=== PATIENT | female | born 1980 ===

== ENCOUNTER 2017-11-26 10:51 | Emergency (ER) | payer SELFPAY ==
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
[2017-11-26] MEDS ORDERED: Ketorolac INJ* 60 MG/2 ML VIAL IM ONE (13:22)
[2017-11-26] MEDS ORDERED: Methocarbamol TAB* 500 MG PO ONE (13:22)
--- NOTE | 2017-11-26 13:41 | RAD ---
INDICATION: Chest pain COMPARISON: None TECHNIQUE: PA and lateral dual-energy views were obtained. FINDINGS: Bones/Soft Tissues: There are no acute bony findings. Cardiomediastinal: The cardiomediastinal silhouette is normal. Lungs: There are no infiltrates. Pleura: There are no pleural effusions. Other: None IMPRESSION: NO ACTIVE DISEASE.
--- NOTE | 2017-11-26 13:42 | RAD ---
INDICATION: Thoracic pain. Injury. COMPARISON: None TECHNIQUE: Routine 2 view imaging was performed FINDINGS: Bones: There are no acute bony findings. There are minor arthritic changes consisting of endplate sclerosis and marginal osteophyte reformation of the upper thoracic spine. Alignment: There is minor upper thoracic spine kyphosis Disc spaces: The disc spaces are well-maintained Soft tissues: There are no soft tissue abnormalities. IMPRESSION: MINOR OSTEOARTHRITIS AND KYPHOSIS. NO ACUTE FINDINGS.
[2017-11-26 14:04] VITALS: BP 137/94
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
== END 2017-11-26 14:03 | disposition home or self-care (01) ==
LOC: ED 10:51
DX: M54.9 Dorsalgia, unspecified (principal); M54.2 Cervicalgia; V49.9XXA Car occupant (driver) (passenger) injured in unspecified traffic accident, initial encounter; Y92.9 Unspecified place or not applicable
CPT/HCPCS: 36415; 71046; 72070; 72125; 84702; 96372; 99283; A9270-GY; J1885